=== PATIENT | male | born 1995 | race Caucasian/White ===

== ENCOUNTER 2023-04-10 20:34 | Emergency (ER) | payer OTHER, SELFPAY ==
--- NOTE | ~2023-04-10 | XR_ITS ---
EXAMINATION: XR ankle RT 2V DATE: 04/10/2023 21:05 INDICATION: Right ankle injury. TECHNIQUE: 2 views of right ankle were obtained. COMPARISON: None. FINDINGS: Bone alignment is normal. No fracture. Joint spaces are normal. IMPRESSION: 1. Normal right ankle. Reviewed, dictated and finalized at location E. IMPRESSION: 1. Normal right ankle.
[2023-04-10 20:36] VITALS: BP 138/76; PULSE 102; RESP 15; TEMP 36.4; O2SAT 100
[2023-04-10 20:42] VITALS: BP 144/78; PULSE 97; RESP 16; TEMP 36.4; O2SAT 97
--- NOTE | 2023-04-10 21:14 | ED.GENADULT ---
HPI - General Adult General Chief complaint: Extremity Injury, Lower Stated complaint: trauma Time Seen by Provider: 04/10/23 21:07 History of Present Illness HPI narrative: Patient is a 27-year-old gentleman who presents emerged part with chief complaint of right ankle pain patient reports he was playing basketball jumped and landed he felt his ankle twist and heard a pop patient states that it is exquisitely painful for him both the medial and lateral malleolus reports no deformity reports minimal swelling. Patient reports pain is worse with movement and improved with rest. Related Data Allergies Allergy/AdvReac Type Severity Reaction Status Date / Time No Known Allergies Allergy Verified 04/10/23 20:38 Review of Systems Review of Systems: A 10 system review of systems was completed on the patient and is negative except for what is stated in the HPI. Nursing and ancillary documentation was reviewed. Exam Narrative: GENERAL: Well-appearing, well-nourished, and in no acute distress. HEAD: Normocephalic, atraumatic. EYES: PERRLA and EOMI. ENT: Nares clear, no rhinorrhea or epistaxis. Mucous membranes moist. NECK: Supple. CHEST: Clear to auscultation. No respiratory distress. HEART: Regular rate and rhythm. No murmur heard. Normal peripheral pulses. ABDOMEN: Soft, nontender, nondistended, normal active bowel sounds. EXTREMITIES: Normal range of motion. No edema. There is tenderness to palpation the medial lateral malleolus of the right ankle no tenderness at the base of the fifth metatarsal SKIN: Warm, dry, no rash. NEURO: No focal deficits. Alert and oriented x3. PSYCH: Normal mood and affect. Course Vital Signs Vital signs: Vital Signs Temperature 36.4 C 04/10/23 20:36 Pulse Rate 102 H 04/10/23 20:36 Respiratory Rate 15 04/10/23 20:36 Blood Pressure 138/76 04/10/23 20:36 Pulse Oximetry 100 04/10/23 20:36 Oxygen Delivery Room Air 04/10/23 20:36 Temperature 36.4 C 04/10/23 20:42 Pulse Rate 97 04/10/23 20:42 Respiratory Rate 16 04/10/23 20:42 Blood Pressure 144/78 H 04/10/23 20:42 Pulse Oximetry 97 04/10/23 20:42 Oxygen Delivery Room Air 04/10/23 20:36 Medical Decision Making MDM Narrative Medical decision making narrative: Differential diagnosis closed fracture, sprain, dislocation Plan: X-rays of the right ankle showed no evidence of fracture or dislocation. Patient will be placed in [place] wrap and crutches instructed to rest elevation and ice and follow-up Vital Signs Vital Signs: Vital Signs Temperature 36.4 C 04/10/23 20:36 Pulse Rate 102 H 04/10/23 20:36 Respiratory Rate 15 04/10/23 20:36 Blood Pressure 138/76 04/10/23 20:36 Pulse Oximetry 100 04/10/23 20:36 Oxygen Delivery Room Air 04/10/23 20:36 Temperature 36.4 C 04/10/23 20:42 Pulse Rate 97 04/10/23 20:42 Respiratory Rate 16 04/10/23 20:42 Blood Pressure 144/78 H 04/10/23 20:42 Pulse Oximetry 97 04/10/23 20:42 Oxygen Delivery Room Air 04/10/23 20:36 Discharge Plan Discharge Clinical Impression: Ankle sprain and strain Patient Disposition: Home, Self-Care Condition: Stable Instructions: Antibiotic Form, Ankle Sprain (ED), Crutch Instructions (ED) Follow-up/Referrals: Ricky Garcia MD [Physician] - PHYSICIAN NOT ON STAFF,NONSTAFF [Primary Care Provider] - Time of Disposition: 21:16
[2023-04-10] MEDS: IBUPROFEN 400 MG TABLET 800 MG PO (21:28)
== END 2023-04-10 21:40 | disposition home or self-care (01) ==
PROVIDERS: Emergency Provider Emergency Medicine
DX: S93.401A Sprain of unspecified ligament of right ankle, initial encounter (principal); S96.911A Strain of unspecified muscle and tendon at ankle and foot level, right foot, initial encounter; X50.9XXA Other and unspecified overexertion or strenuous movements or postures, initial encounter; Y93.67 Activity, basketball
CPT/HCPCS: 73600; 99283; A9270